=== PATIENT | male | born 1980 | race Caucasian/White ===

== ENCOUNTER 2021-10-28 13:27 | Inpatient (IN) ==
[2021-10-28] MEDS ORDERED: Naloxone 0.4 MG/ML INJ IVP PRN (16:30)
[2021-10-28] MEDS ORDERED: Acetaminophen 325 MG TABLET PO PRN (16:30)
[2021-10-28] MEDS ORDERED: *HR* Promethazine 25 MG/ML VIAL IM PRN (16:30)
[2021-10-28] MEDS ORDERED: Melatonin 3 MG TABLET PO PRN (16:30)
[2021-10-28] MEDS ORDERED: Mag Hydrox/Al Hydrox/Simeth 30 ML UDC PO PRN (16:30)
[2021-10-28] MEDS: *HR* Labetalol 20 MG/4 ML SYRINGE IVP PRN (17:08)
[2021-10-28 17:25] LABS: Hemoglobin 12.2 g/dL (12.9-16.9)
[2021-10-28 17:43] LABS: Magnesium 1.7 mg/dL (1.6-2.6); Phosphorous 7.6 mg/dL (2.7-4.5)
[2021-10-28] MEDS: Pantoprazole 40 MG VIAL IVP SCH (18:42)
[2021-10-28] MEDS ORDERED: *HR* OxyCODONE Oral Soln 5 MG/5 ML UD.LIQ PO ONE (19:55)
[2021-10-28] MEDS: 0.9 % Sodium Chloride 1,000 ML IVC SCH (20:33)
[2021-10-29] MEDS: MetroNIDAZOLE 500 MG/100 ML 500 MG/100 ML BAG IVPB SCH ×3 (00:22→16:46)
[2021-10-29 01:00] LABS: Bacteria,Urine Few per hpf (None-Few); Bilirubin,Urine Negative (Negative); Blood,Urine Trace (Negative); Budding Yeast,Urine Few per hpf (None Seen); Clarity,Urine Turbid (Clear); Color,Urine Light-Yellow (Yellow); Glucose,Urine (UA) Normal (Normal); Ketones,Urine Negative (Negative); Leukocyte Esterase,Urine Negative (Negative); Mucus,Urine Few per lpf (None-Few); Nitrite,Urine Negative (Negative); Protein,Urine 70 mg/dL (Neg-Trace); RBC,Urine 0-3 per hpf (0-3); Specific Gravity,Urine 1.014 (1.010-1.025); Squamous Epithelial Cell,Urine Few per hpf (None-Few); Urobilinogen,Urine Normal (Normal)
[2021-10-29 01:44] LABS: Basophils # 0.1 K/mcL (0.0-0.2); Basophils % 0.7 %; Eosinophils % 0.1 %; Hematocrit 31.4 % (37.5-50.1); Immature Granulocytes % 0.5 % (0-4); Lymphocytes # 1.9 K/mcL (0.6-4.6); Lymphocytes % 11.3 %; Mean Corpuscular HGB Conc 32.2 g/dL (31.6-35.5); Mean Corpuscular Hemoglobin 28.4 pg (28.0-33.3); Mean Corpuscular Volume 88.2 fL (83.0-100.0); Mean Platelet Volume 11.4 fL (9.4-12.4); Monocytes # 1.4 K/mcL (0.0-1.3); Monocytes % 8.5 %; Neutrophils # 13.2 K/mcL (1.6-8.9); Platelet Count 239 K/mcL (140-400); Red Blood Count 3.56 M/mcL (4.19-5.50); Red Cell Distribution Width 14.1 % (11.5-14.5); Segmented Neutrophils % 78.9 %; White Blood Count 16.7 K/mcL (4.3-11.1)
[2021-10-29 01:46] LABS: Hemoglobin 10.1 g/dL (12.9-16.9)
[2021-10-29 02:11] LABS: Albumin 2.4 g/dL (3.5-5.7); Albumin/Globulin Ratio 1.2 (1.1-2.2); Bilirubin,Total 0.4 mg/dL (0.3-1.0); Calcium 7.4 mg/dL (8.6-10.3); Potassium 4.6 mEq/L (3.5-5.1); Total Protein 4.4 g/dL (6.4-8.9)
[2021-10-29] MEDS: 0.9 % Sodium Chloride 1,000 ML IVC SCH ×3 (05:37→16:47)
[2021-10-29] MEDS: Pantoprazole 40 MG VIAL IVP SCH ×2 (05:37→16:46)
[2021-10-29] MEDS: Ondansetron 4 MG/2 ML VIAL IVP PRN (05:38)
[2021-10-29 06:42] LABS: Phosphorous 7.3 mg/dL (2.7-4.5)
[2021-10-29] MEDS: *HR* Labetalol 20 MG/4 ML SYRINGE IVP PRN ×2 (07:29→16:46)
[2021-10-29] MEDS: cefTRIAXone 2,000 MG in 0.9 % Sodium Chloride 20 ML IVP SCH (09:17)
[2021-10-29] MEDS: amLODIPine 5 MG TABLET PO SCH (10:58)
[2021-10-29 15:06] LABS: Sodium, Urine 48.6 mEq/L
[2021-10-30] MEDS: Ondansetron 4 MG/2 ML VIAL IVP PRN (00:04)
[2021-10-30] MEDS: MetroNIDAZOLE 500 MG/100 ML 500 MG/100 ML BAG IVPB SCH ×3 (00:22→16:09)
[2021-10-30] MEDS: *HR* Labetalol 20 MG/4 ML SYRINGE IVP PRN (03:35)
[2021-10-30] MEDS: Pantoprazole 40 MG VIAL IVP SCH ×2 (05:58→16:10)
[2021-10-30 08:17] LABS: Hematocrit 27.5 % (37.5-50.1); Mean Corpuscular HGB Conc 32.7 g/dL (31.6-35.5); Mean Corpuscular Hemoglobin 29.2 pg (28.0-33.3); Mean Corpuscular Volume 89.3 fL (83.0-100.0); Mean Platelet Volume 11.9 fL (9.4-12.4); Platelet Count 169 K/mcL (140-400); Red Blood Count 3.08 M/mcL (4.19-5.50); Red Cell Distribution Width 14.4 % (11.5-14.5); White Blood Count 11.1 K/mcL (4.3-11.1)
[2021-10-30 08:39] LABS: Calcium 7.1 mg/dL (8.6-10.3); Potassium 4.3 mEq/L (3.5-5.1)
[2021-10-30] MEDS: amLODIPine 5 MG TABLET PO SCH (08:39)
[2021-10-30] MEDS: cefTRIAXone 2,000 MG in 0.9 % Sodium Chloride 20 ML IVP SCH (08:39)
[2021-10-30] MEDS: carvediloL 6.25 MG TABLET PO SCH ×2 (08:39→16:10)
[2021-10-30 08:58] LABS: Uric Acid 9.1 mg/dL (2.3-7.6)
[2021-10-30 09:50] LABS: Vitamin B12 207 pg/mL (250-1100)
[2021-10-30 10:49] LABS: Vitamin D 25 Hydroxy 18 ng/mL (30-80)
[2021-10-30] MEDS: 0.9 % Sodium Chloride 1,000 ML IVC SCH (11:54)
[2021-10-30] MEDS ORDERED: *HR* Labetalol 20 MG/4 ML SYRINGE IVP PRN (12:06)
[2021-10-30 12:43] LABS: Complement C3 71 mg/dL (87-200)
[2021-10-31] MEDS: 0.9 % Sodium Chloride 1,000 ML IVC SCH ×3 (00:01→13:08)
[2021-10-31] MEDS: MetroNIDAZOLE 500 MG/100 ML 500 MG/100 ML BAG IVPB SCH ×3 (00:09→15:58)
[2021-10-31] MEDS ORDERED: *HR* Metoprolol 5 MG/5 ML VIAL IVP ONE (01:45)
[2021-10-31 04:36] LABS: Hematocrit 24.6 % (37.5-50.1); Hemoglobin 7.8 g/dL (12.9-16.9); Mean Corpuscular HGB Conc 31.7 g/dL (31.6-35.5); Mean Corpuscular Hemoglobin 28.6 pg (28.0-33.3); Mean Corpuscular Volume 90.1 fL (83.0-100.0); Mean Platelet Volume 12.4 fL (9.4-12.4); Platelet Count 167 K/mcL (140-400); Red Blood Count 2.73 M/mcL (4.19-5.50); Red Cell Distribution Width 14.2 % (11.5-14.5)
[2021-10-31] MEDS: Pantoprazole 40 MG VIAL IVP SCH ×2 (05:05→15:58)
[2021-10-31 05:34] LABS: Estimated Average Glucose 100 mg/dl; Hemoglobin A1C 5.1 %
[2021-10-31 06:09] LABS: Calcium 7.3 mg/dL (8.6-10.3); Phosphorous 5.5 mg/dL (2.7-4.5); Potassium 4.1 mEq/L (3.5-5.1)
[2021-10-31] MEDS: amLODIPine 5 MG TABLET PO SCH (07:36)
[2021-10-31] MEDS: carvediloL 6.25 MG TABLET PO SCH ×2 (07:36→15:59)
[2021-10-31] MEDS: cefTRIAXone 2,000 MG in 0.9 % Sodium Chloride 20 ML IVP SCH (07:36)
[2021-10-31 09:35] LABS: Hematocrit 25.8 % (37.5-50.1); Hemoglobin 8.3 g/dL (12.9-16.9); Mean Corpuscular HGB Conc 32.2 g/dL (31.6-35.5); Mean Corpuscular Volume 90.2 fL (83.0-100.0); Mean Platelet Volume 11.8 fL (9.4-12.4); Platelet Count 176 K/mcL (140-400); Red Blood Count 2.86 M/mcL (4.19-5.50); Red Cell Distribution Width 14.2 % (11.5-14.5); White Blood Count 9.7 K/mcL (4.3-11.1)
[2021-10-31] MEDS ORDERED: Iron Sucrose Complex 200 MG in 0.9 % Sodium Chloride 100 ML IVPB ONE (11:44)
[2021-10-31] MEDS: Cyanocobalamin (B-12) 1,000 MCG/ML VIAL IM SCH (13:05)
[2021-10-31] MEDS ORDERED: Perflutren Lipid Microsphere 1.3 ML in 0.9 % Sodium Chloride 8.7 ML IVP PRN (14:13)
[2021-10-31] MEDS: Ondansetron 4 MG/2 ML VIAL IVP PRN (19:42)
[2021-11-01] MEDS: MetroNIDAZOLE 500 MG/100 ML 500 MG/100 ML BAG IVPB SCH ×3 (00:06→16:27)
[2021-11-01] MEDS ORDERED: 0.9 % Sodium Chloride 1,000 ML ONE (01:54)
[2021-11-01] MEDS: 0.9 % Sodium Chloride 1,000 ML IVC SCH ×2 (02:00→14:30)
[2021-11-01 02:15] LABS: Hemoglobin 7.8 g/dL (12.9-16.9); Mean Corpuscular HGB Conc 32.5 g/dL (31.6-35.5); Mean Corpuscular Hemoglobin 29.4 pg (28.0-33.3); Mean Corpuscular Volume 90.6 fL (83.0-100.0); Mean Platelet Volume 11.8 fL (9.4-12.4); Platelet Count 173 K/mcL (140-400); Red Blood Count 2.65 M/mcL (4.19-5.50); Red Cell Distribution Width 14.3 % (11.5-14.5); White Blood Count 6.8 K/mcL (4.3-11.1)
[2021-11-01 02:37] LABS: Calcium 7.4 mg/dL (8.6-10.3); Magnesium 1.8 mg/dL (1.6-2.6); Phosphorous 5.6 mg/dL (2.7-4.5); Potassium 3.9 mEq/L (3.5-5.1)
[2021-11-01] MEDS: Pantoprazole 40 MG VIAL IVP SCH ×2 (05:07→16:28)
[2021-11-01] MEDS: cefTRIAXone 2,000 MG in 0.9 % Sodium Chloride 20 ML IVP SCH (09:35)
[2021-11-01] MEDS: carvediloL 6.25 MG TABLET PO SCH ×2 (09:36→16:28)
[2021-11-01] MEDS: amLODIPine 5 MG TABLET PO SCH (09:36)
[2021-11-01 10:36] LABS: Kappa Qnt Free Light Chains 120.92 mg/L (3.30-19.40); Lambda Qnt Free Light Chains 156.34 mg/L (5.71-26.30)
[2021-11-01 11:42] LABS: Protein/Creatinine Ratio,Urine 1.6 mg/mg (0.00-0.20)
[2021-11-01 13:19] LABS: ANA IgG by ELISA DETECTED (None Detected)
[2021-11-01] MEDS: Cyanocobalamin (B-12) 1,000 MCG/ML VIAL IM SCH (16:02)
[2021-11-01] MEDS: Cyanocobalamin (B-12) 1,000 MCG TABLET PO SCH (18:26)
[2021-11-02] MEDS: 0.9 % Sodium Chloride 1,000 ML IVC SCH (00:02)
[2021-11-02] MEDS: MetroNIDAZOLE 500 MG/100 ML 500 MG/100 ML BAG IVPB SCH ×2 (01:15→08:01)
[2021-11-02 01:47] LABS: Hematocrit 24.6 % (37.5-50.1); Mean Corpuscular HGB Conc 32.5 g/dL (31.6-35.5); Mean Corpuscular Hemoglobin 28.9 pg (28.0-33.3); Mean Corpuscular Volume 88.8 fL (83.0-100.0); Mean Platelet Volume 11.8 fL (9.4-12.4); Platelet Count 202 K/mcL (140-400); Red Blood Count 2.77 M/mcL (4.19-5.50); Red Cell Distribution Width 13.9 % (11.5-14.5); White Blood Count 7.6 K/mcL (4.3-11.1)
[2021-11-02 02:01] LABS: Calcium 7.6 mg/dL (8.6-10.3); Potassium 3.8 mEq/L (3.5-5.1)
[2021-11-02] MEDS: Pantoprazole 40 MG VIAL IVP SCH (06:30)
[2021-11-02 06:41] LABS: Alpha 2 Globulin (PEP) 0.42 g/dL (0.48-1.05); Beta Globulin (PEP) 0.39 g/dL (0.48-1.10)
[2021-11-02 07:30] LABS: IFE Reflexed IFE Done; Immunoglobulin A 63 mg/dL (68-408); Immunoglobulin G 505 mg/dL (768-1632); Immunoglobulin M 90 mg/dL (35-263)
[2021-11-02] MEDS: carvediloL 6.25 MG TABLET PO SCH (08:03)
[2021-11-02] MEDS: Cyanocobalamin (B-12) 1,000 MCG TABLET PO SCH (08:03)
[2021-11-02] MEDS: amLODIPine 5 MG TABLET PO SCH (08:03)
[2021-11-02] MEDS: cefTRIAXone 2,000 MG in 0.9 % Sodium Chloride 20 ML IVP SCH (08:05)
[2021-11-02] MEDS ORDERED: hydrALAZINE 25 MG TABLET PO PRN (08:58)
[2021-11-02 11:52] VITALS: BP 164/83; PULSE 86; TEMP 98.3; O2SAT 96
[2021-11-02 18:05] LABS: ANCA IFA Titer <1:20 (<1:20)
[2021-11-03 11:01] LABS: ANCA IFA Pattern NONE DETECTED (None Detected); Serine Protease-3 Antibody 0 AU/mL (0-19)
[2021-11-03 18:43] LABS: ANA HEp-2 IgG IFA <1:80 (<1:80)
== END 2021-11-02 13:54 | disposition home or self-care (01) | DRG 720 ==
LOC: 2ANU → SUATTDRO 15:44
PROVIDERS: ADMIT Internal Medicine; ATTEND Family Medicine

== ENCOUNTER 2022-02-08 09:07 | Inpatient (IN) ==
[2022-02-08] MEDS ORDERED: *HR* Labetalol 20 MG/4 ML SYRINGE IVP ONE (09:35)
[2022-02-08 09:39] LABS: Hematocrit 34.9 % (37.5-50.1); Hemoglobin 11.8 g/dL (12.9-16.9); Mean Corpuscular HGB Conc 33.8 g/dL (31.6-35.5); Mean Corpuscular Hemoglobin 28.9 pg (28.0-33.3); Mean Corpuscular Volume 85.3 fL (83.0-100.0); Mean Platelet Volume 12.6 fL (9.4-12.4); Platelet Count 149 K/mcL (140-400); Red Blood Count 4.09 M/mcL (4.19-5.50); Red Cell Distribution Width 12.8 % (11.5-14.5); White Blood Count 11.8 K/mcL (4.3-11.1)
[2022-02-08 10:05] LABS: Albumin 3.8 g/dL (3.5-5.7); Albumin/Globulin Ratio 1.4 (1.1-2.2); Bilirubin,Direct 0.2 mg/dL (0.0-0.2); Bilirubin,Indirect 0.4 mg/dL (0.0-1.0); Bilirubin,Total 0.6 mg/dL (0.3-1.0); Calcium 8.4 mg/dL (8.6-10.3); Globulin 2.8 g/dL (2.4-3.5); Potassium 3.7 mEq/L (3.5-5.1); Total Protein 6.6 g/dL (6.4-8.9); Troponin I 0.08 ng/mL (< 0.04)
[2022-02-08] MEDS: niCARdipine 20 MG/200 ML MLS IVC SCH ×3 (10:11→21:46)
[2022-02-08] MEDS ORDERED: 0.9 % Sodium Chloride 500 ML IVC ONE (11:47)
[2022-02-08] MEDS ORDERED: Naloxone 0.4 MG/ML INJ IVP PRN (11:48)
[2022-02-08] MEDS ORDERED: *HR* HYDROcodone/Acet 5/325 mg TABLET PO PRN (11:48)
[2022-02-08] MEDS ORDERED: Ondansetron 4 MG/2 ML VIAL IVP PRN (11:48)
[2022-02-08] MEDS ORDERED: Pantoprazole 40 MG VIAL IVP ONE (12:24)
[2022-02-08] MEDS: carvediloL 6.25 MG TABLET PO SCH ×2 (13:31→17:53)
[2022-02-08 14:15] LABS: Amphetamine Screen,Urine Negative ng/mL (Cutoff=1000); Barbiturate Screen,Urine Negative ng/mL (Cutoff=200); Benzodiazepines Screen,Urine Negative ng/mL (Cutoff=200); Cannabinoid Screen,Urine Negative ng/mL (Cutoff = 50); Cocaine Screen,Urine Negative ng/mL (Cutoff= 300); Opiate Screen,Urine Negative ng/mL (Cutoff=300); Phencyclidine Screen,Urine Negative ng/mL (Cutoff=25)
[2022-02-08 14:16] LABS: Bacteria,Urine Few per hpf (None-Few); Bilirubin,Urine Negative (Negative); Blood,Urine Small (Negative); Clarity,Urine Clear (Clear); Color,Urine Light-Yellow (Yellow); Glucose,Urine (UA) Normal (Normal); Ketones,Urine Negative (Negative); Leukocyte Esterase,Urine Negative (Negative); Mucus,Urine Few per lpf (None-Few); Nitrite,Urine Negative (Negative); Protein,Urine >=300 mg/dL (Neg-Trace); RBC,Urine 0-3 per hpf (0-3); Specific Gravity,Urine 1.014 (1.010-1.025); Urobilinogen,Urine Normal (Normal)
[2022-02-08] MEDS ORDERED: hydrALAZINE 25 MG TABLET PO SCH ×2 (15:00→18:00)
[2022-02-08] MEDS: *HR* Heparin 5,000 UNIT/ML VIAL SQ SCH (17:55)
[2022-02-08] MEDS: hydrALAZINE 25 MG TABLET PO SCH (20:43)
[2022-02-08] MEDS: NIFEdipine XL (24 HR) 60 MG TAB.ER.24 PO SCH (20:43)
[2022-02-09 04:00] LABS: Prothrombin Time 10.9 Seconds (9.4-12.1)
[2022-02-09 04:01] LABS: Activated Partial Thrombo Time 30.6 Seconds (26.0-36.0)
[2022-02-09 04:05] LABS: Calcium 7.6 mg/dL (8.6-10.3); Magnesium 1.8 mg/dL (1.6-2.6); Potassium 3.2 mEq/L (3.5-5.1)
[2022-02-09] MEDS: niCARdipine 20 MG/200 ML MLS IVC SCH (04:15)
[2022-02-09] MEDS: *HR* Heparin 5,000 UNIT/ML VIAL SQ SCH ×2 (05:56→16:08)
[2022-02-09] MEDS: hydrALAZINE 25 MG TABLET PO SCH ×3 (07:35→20:51)
[2022-02-09] MEDS: NIFEdipine XL (24 HR) 60 MG TAB.ER.24 PO SCH (07:35)
[2022-02-09] MEDS ORDERED: carvediloL 6.25 MG TABLET PO SCH (08:00)
[2022-02-09] MEDS: carvediloL 6.25 MG TABLET PO SCH ×2 (08:03→16:07)
[2022-02-09] MEDS: Torsemide 20 MG TABLET PO SCH (08:03)
[2022-02-09] MEDS ORDERED: hydrALAZINE 25 MG TABLET PO SCH (10:00)
[2022-02-10 02:37] LABS: Calcium 7.5 mg/dL (8.6-10.3); Potassium 3.2 mEq/L (3.5-5.1)
[2022-02-10] MEDS: *HR* Heparin 5,000 UNIT/ML VIAL SQ SCH (06:41)
[2022-02-10] MEDS: NIFEdipine XL (24 HR) 60 MG TAB.ER.24 PO SCH (08:51)
[2022-02-10] MEDS: niCARdipine 20 MG/200 ML MLS IVC SCH ×4 (08:51→09:49)
[2022-02-10] MEDS: hydrALAZINE 25 MG TABLET PO SCH (08:51)
[2022-02-10] MEDS: Torsemide 20 MG TABLET PO SCH (08:53)
[2022-02-10] MEDS: carvediloL 6.25 MG TABLET PO SCH (08:53)
[2022-02-10 11:45] VITALS: O2SAT 97
[2022-02-10 12:05] VITALS: BP 189/101; TEMP 98.6
[2022-02-10 13:45] VITALS: PULSE 77
[2022-02-12 15:56] LABS: Total Volume 24 Hour,Urine 2.1 Liters (0.80-1.80)
[2022-02-12 16:10] LABS: Protein/Creatinine Ratio,Urine 2.06 mg/mg (0.00-0.20)
== END 2022-02-10 14:30 | disposition home or self-care (01) | DRG 199 ==
LOC: EMEROOARM 09:07 → 2NNU 15:49 → SUATTDRO 15:49 → 2NNU 16:50
PROVIDERS: ADMIT Internal Medicine; ATTEND Internal Medicine